=== PATIENT | male | born 1965 | race Hispanic/Latino ===

== ENCOUNTER 2018-01-08 14:51 | Emergency (ER) | payer OTHER, SELFPAY ==
[2018-01-08] MEDS ORDERED: Ketorolac Tromethamine 60 MG/2 ML VIAL ONE (15:02)
--- NOTE | 2018-01-08 15:45 | CT ---
NONCONTRAST CT LUMBAR SPINE: 01/08/2018 HISTORY: Injury to lumbar spine. Patient was stung by a bee and fell four feet, landing on buttocks. The pat ient states he cannot put weight on legs. TECHNIQUE: Contiguous axial CT images were obtained through the lumbar spine, from the T11-T12 level to the uppe r sacrum. Sagittal and coronal reformatted images are provided. FINDINGS: Vascular calcifications are seen in the abdominal aorta and iliac arteries. The retroperitoneal structures otherwise demonstrate a grossly normal nonenhanced CT appearance. The vertebral body heights are within normal limits. No fracture or subluxation is seen involving th e lumbar spine. L1-L2: There is a mild broad-based disk osteophyte complex with mild narrowing of the ventral aspect of the thecal sac. The neural foramina are patent. L2-L3: There is a mild broad-based disk osteophyte complex and mild facet hypertrophic changes. The re is mild narrowing of the central spinal canal. The neural foramina are patent. L3-L4: There is a disk osteophyte complex with facet hypertrophic changes. There is moderate narrow ing of the central spinal canal, but the neural foramina do apparent patent, with minimal encroachmen t on the left neural foramen. L4-L5: There is a broad-based disk osteophyte complex with facet hypertrophic changes. There is mod erate narrowing of the central spinal canal. There is mild right-sided neural foraminal narrowing. The left neural foramen is patent. L5-S1: There is no disk bulge or disk protrusion. The central spinal canal and neural foramina do a pparent patent. There are mild facet degenerative changes noted. IMPRESSION: 1. No fracture or subluxation is seen involving the lumbar spine. 2. Mild degenerative changes seen throughout the lower thoracic, as well as involving the lumbar spi ne. 3. Mild right convex curvature of the thoracolumbar spine, which could be positional in origin. 4. Vascular calcifications. POS: [facility]
[2018-01-08] MEDS ORDERED: Ondansetron ODT 4 MG TAB ONE (16:24)
== END 2018-01-08 17:05 | disposition home or self-care (01) ==
LOC: ERS 14:51
DX: M54.5 Low back pain (principal); E11.9 Type 2 diabetes mellitus without complications; E78.5 Hyperlipidemia, unspecified; I10 Essential (primary) hypertension; F17.210 Nicotine dependence, cigarettes, uncomplicated; Z79.84 Long term (current) use of oral hypoglycemic drugs
CPT/HCPCS: 72131; 96372; J1885; J2270; Q0162

== ENCOUNTER 2018-05-21 15:00 | Outpatient (CLI) | payer OTHER | END 2018-05-21 15:01 | disposition home or self-care (01) | LOC: SLEEPLAB 15:00 | PROVIDERS: ATTEND Nurse Practitioner Family | DX: G47.33 Obstructive sleep apnea (adult) (pediatric) (principal); R06.83 Snoring; G47.00 Insomnia, unspecified; I10 Essential (primary) hypertension; E11.9 Type 2 diabetes mellitus without complications | CPT/HCPCS: 95806 ==

== ENCOUNTER 2018-07-13 19:30 | Outpatient (CLI) | payer OTHER | END 2018-07-13 19:31 | disposition home or self-care (01) | LOC: SLEEPLAB 19:30 | PROVIDERS: ATTEND Nurse Practitioner Family | DX: G47.33 Obstructive sleep apnea (adult) (pediatric) (principal); R06.83 Snoring; G47.10 Hypersomnia, unspecified; E66.9 Obesity, unspecified; Z68.41 Body mass index [BMI] 40.0-44.9, adult | CPT/HCPCS: 95811 ==